=== PATIENT | female | born 1955 | race Caucasian/White ===

== ENCOUNTER 2018-04-16 15:42 | Observation (INO) | payer MEDICARE, BC ==
[2018-04-16 16:17] LABS: #Eosinphils 0.1 thou/uL (0.0-0.7); #Lymphocytes 1.6 thou/uL (1.20-3.40); #Monocytes 0.4 thou/uL (0.11-0.59); #Neutrophils 3.3 thou/uL (1.40-6.50); %Basophils 0.6 % (0.0-1.0); %Eosinophils 1.4 % (0.0-10.0); %Lymphocytes 29.2 % (21.0-51.0); %Monocytes 8.1 % (0.0-10.0); %Neutrophils 60.6 % (42.0-75.0); Hemoglobin 12.3 g/dL (12.0-16.0); Mean Corpuscular Hemoglobin 25.5 pg (27.0-31.0); Mean Corpuscular Volume 77.4 fl (81.0-99.0); Mean Platelet Volume 7.7 fL (7.4-10.4); Platelet Count 266 thou/uL (130-400); RBC Distribution Width 13.7 % (11.5-14.5); Red Blood Cell (RBC) Count 4.82 mill/uL (4.20-5.40); White Blood Cell (WBC) Count 5.4 thou/uL (4.8-10.8)
[2018-04-16 16:32] LABS: ALT (SGPT) 16 U/L (8-55); AST (SGOT) 20 U/L (5-34); Albumin 4.4 g/dL (3.4-4.8); Alkaline Phosphatase 55 U/L (40-150); Anion Gap 18 mmol/L (10-20); BUN (Urea Nitrogen) 24 mg/dL (9.8-20.1); Bilirubin, Total 0.8 mg/dL (0.2-1.2); Calc. Creatinine Clearance 0 mL/min (70-130); Calcium 9.8 mg/dL (7.8-10.44); Carbon Dioxide 23 mmol/L (23-31); Chloride 100 mmol/L (98-107); Estimated GFR-MDRD 65; Globulin 2.8 g/dL (2.4-3.5); Glucose 95 mg/dL (80-115); Potassium 4.2 mmol/L (3.5-5.1); Protein, Total 7.2 g/dL (6.0-8.3); Sodium 137 mmol/L (136-145)
--- NOTE | 2018-04-16 16:34 | RAD ---
CHEST ONE VIEW: Comparison: 06-21-17 History: Altered mental status. FINDINGS: Normal cardiac silhouette. Pulmonary vessels and hilum are normal. No masses or consolidations. No pn eumothorax or osseous abnormalities. IMPRESSION: NO acute cardiopulmonary process. POS: [facility]
[2018-04-16 17:40] LABS: Bilirubin Negative (Negative); Blood, Urine Negative (Negative); Clarity CLOUDY (Clear); Glucose, Urine (Dipstick) Negative (Negative); Leukocyte Large (Negative); Nitrite Negative (Negative); Protein, Urine (Dipstick) Negative (Neg-Trace); Specific Gravity, Urine 1.015 (1.002-1.036); pH, Urine 7.5 (5.0-9.0)
[2018-04-16 17:50] LABS: Bacteria/HPF 3+ HPF (None Seen); Hyaline Casts/LPF NONE SEEN LPF (0-3 Hyaline); RBC/HPF None Seen HPF (0-3); Squamous Epithelial 0-3 HPF (0-3)
--- NOTE | 2018-04-16 18:28 | CT ---
HEAD CT WITHOUT CONTRAST: History: Altered mental status. Comparison: 06-21-17 Technique: Noncontrast head CT is performed from skull base to skull vertex. FINDINGS: No parenchymal hemorrhage. No extraaxial hematoma. No midline shift. Basilar cisterns are patent. Age appropriate atrophy. Cortical weems white matter differentiation is preserved. Ventricles and sulci are patent and symmetric. Adequate aeration of the sinuses and mastoid air cells. Calvarium is intact. IMPRESSION: No acute intracranial process. POS: [facility]
[2018-04-16] MEDS ORDERED: cefTRIAXone\\ROCEPHIN 2 GM VIAL ONE (18:56)
[2018-04-16] MEDS ORDERED: Ondansetron ODT 4 MG TAB SL PRN (20:18)
[2018-04-16] MEDS ORDERED: Ondansetron HCl/PF 4 MG/2 ML Vial IVP PRN ×2 (20:18→22:29)
[2018-04-16] MEDS ORDERED: Acetaminophen 325 MG TAB PO PRN ×2 (20:18→22:29)
[2018-04-16 20:22] LABS: Lactic Acid 0.9 mmol/L (0.5-2.2)
[2018-04-16 20:41] VITALS: BMI 29.5
[2018-04-16] MEDS ORDERED: Ondansetron ODT 4 MG TAB PO PRN ×2 (22:29)
[2018-04-16] MEDS ORDERED: hydrALAZINE 20 MG/ML VIAL SLOW IVP PRN (22:29)
[2018-04-16] MEDS ORDERED: Lorazepam 2 MG/ML VIAL SLOW IVP PRN (22:29)
[2018-04-16] MEDS ORDERED: Sodium Chloride 0.9% 1,000 ML IV SCH (22:30)
--- NOTE | 2018-04-17 02:30 | HP ---
PRIMARY CARE PHYSICIAN: Dr. Jessy Ann. CHIEF COMPLAINT: "I went for a walk, got lost and overheated and had a seizure." HISTORY OF PRESENT ILLNESS: The history of present illness is taken from Ms. Simon herself, by the time I seeing her, her family has left. The patient does not have all of the details of how she came to be admitted, but she says that earlier today she decided to go for a walk and says that she decid ed to follow the sidewalk around, but did not realize that it went so far. She says she got lost and then began to become overheated. She says she remembers she was close to a fire station and then bl acked out. She says she does not really know what happened after that, she believes she arrived to [facility] via ambulance and she was seen in the ER and was noted to be febrile, also had urinalysis which was consistent with urinary tract infection and is being placed in observation for further uzma atment. The patient says that other than feeling a little bit tired and wanting to go to sleep, she has no complaints. She does admit to a headache off and on and has had some urinary frequency, but n o dysuria. She believes she may have had a seizure earlier and is on seizure medication, which she h as been compliant with. REVIEW OF SYSTEMS: Constitutional: There have been no fevers prior to the episode, no chills, no ni ght sweats, no weight loss. HEENT: She complains of headache off and on. No visual changes, no sor e throat, rhinorrhea, neck pain, no adenopathy. Pulmonary: No hemoptysis, no cough, no wheezing. C ardiovascular: She denies any chest pain, no shortness of breath, no PND, no orthopnea. Gastrointes tinal: No abdominal pain, no nausea, no vomiting, no change in bowels. Genitourinary: She has had some urinary frequency, but no dysuria, no hematuria. Musculoskeletal: No joint pains. No weakness . Skin and Integument: No skin changes. No rash. Psychiatric: No symptoms of anxiety or depressi on. PAST MEDICAL HISTORY: Significant for pseudoseizures, bipolar disorder, anxiety, depression, and pso riatic arthritis. PAST SURGICAL HISTORY: She has had a cerebral shunt, not sure why; gastric bypass; and hysterectomy. SOCIAL HISTORY: She is . She has two daughters and has grandchildren. She lives with one o f her daughters and her daughter's . She is a nonsmoker, nondrinker. FAMILY HISTORY: Significant for lung disease and cancer and heart disease. ALLERGIES: HYDROCODONE. MEDICATIONS: Taken from the emergency room records and include Keppra 1500 mg twice daily as well as Effexor 75 mg twice daily, and clonazepam 0.25 mg daily. PHYSICAL EXAMINATION: GENERAL: She is alert and oriented. She appears to be in no acute distress. VITAL SIGNS: Blood pressure was 107/60, heart rate 102, respiratory rate of 24, temperature is 102.9 . HEENT: Pupils are equal, round, and reactive. Extraocular muscles are intact. Her sclerae are anic teric. Throat: She has got poor dentition. NECK: No adenopathy, no bruits. LUNGS: Clear to auscultation. There was no wheezing, no rales. CARDIOVASCULAR: She has a normal S1, S2. There was no S3 or S4. No murmurs, clicks, or rubs. ABDOMEN: Soft, it is nontender, nondistended. Positive for bowel sounds. No rebound, no guarding. EXTREMITIES: There is no clubbing, cyanosis, no edema. NEUROLOGIC: The exam is grossly nonfocal, muscle strength was 5/5 in both her upper and lower extrem ities. Reflexes are symmetric and cranial nerves II through XII are intact. LABORATORY AND DIAGNOSTIC DATA: CT scan was negative for any acute intracranial abnormality. EKG wa s sinus rhythm, the rate was in the 90s. No ST wave changes. Urinalysis was significant for positiv e leukocyte esterase and 3+ bacteria. White blood cell count 5.4, hemoglobin 12.3, hematocrit is 37. 3, platelet count is 266,000. Sodium 137, potassium 4.2, chloride is 100, CO2 is 23, BUN of 24, crea tinine 0.88, glucose is 95. Lactic acid was 4.9, repeat was 0.9. ASSESSMENT AND PLAN: This is a pleasant 62-year-old female who is being placed in observation after which sounds like suffering a seizure. It is likely the seizure was a result of a decrease in seizur e threshold from both becoming overheated as well as a possible urinary tract infection. Right now, when I come to see her, she seems to be completely at her baseline without any significant complaints . We will go ahead and monitor her overnight. Place her on IV fluids as well as continue Rocephin a nd continue her usual seizure medications, i.e. Keppra and place her on seizure precautions. If fortunato rrow, she has been clinically stable without any seizures and without any spike in her temperature, t hen likely she can be discharged home on an oral antibiotic for the urinary tract infection and cultu res can likely be followed up with her primary care physician.
[2018-04-17 05:43] LABS: #Eosinphils 0.1 thou/uL (0.0-0.7); #Lymphocytes 2.4 thou/uL (1.20-3.40); #Monocytes 0.8 thou/uL (0.11-0.59); #Neutrophils 5.3 thou/uL (1.40-6.50); %Basophils 0.4 % (0.0-1.0); %Eosinophils 1.2 % (0.0-10.0); %Lymphocytes 28.3 % (21.0-51.0); %Monocytes 8.8 % (0.0-10.0); %Neutrophils 61.3 % (42.0-75.0); Hemoglobin 10.5 g/dL (12.0-16.0); Mean Corpuscular HGB CONC 32.5 g/dL (32.0-36.0); Mean Corpuscular Hemoglobin 25.9 pg (27.0-31.0); Mean Corpuscular Volume 79.7 fl (81.0-99.0); Platelet Count 208 thou/uL (130-400); RBC Distribution Width 13.6 % (11.5-14.5); Red Blood Cell (RBC) Count 4.06 mill/uL (4.20-5.40); White Blood Cell (WBC) Count 8.6 thou/uL (4.8-10.8)
[2018-04-17 05:55] LABS: Anion Gap 9 mmol/L (10-20); BUN (Urea Nitrogen) 18 mg/dL (9.8-20.1); Calc. Creatinine Clearance 125 mL/min (70-130); Calcium 8.4 mg/dL (7.8-10.44); Carbon Dioxide 28 mmol/L (23-31); Chloride 110 mmol/L (98-107); Estimated GFR-MDRD Greater than 90; Glucose 82 mg/dL (80-115); Potassium 3.1 mmol/L (3.5-5.1); Sodium 144 mmol/L (136-145)
[2018-04-17] MEDS ORDERED: Potassium Chloride 20 MEQ TAB PO SCH (08:00)
[2018-04-17] MEDS ORDERED: levETIRAcetam 500 MG TAB PO SCH (09:00)
[2018-04-17] MEDS ORDERED: clonazePAM 0.5 MG TAB PO SCH (09:00)
[2018-04-17] MEDS ORDERED: Venlafaxine HCl XR 75 MG CAP PO SCH (09:00)
[2018-04-17] MEDS ORDERED: Docusate 100 MG CAP PO SCH (09:00)
[2018-04-17 11:36] VITALS: TEMP 97.9
[2018-04-17 11:47] VITALS: BP 98/58
[2018-04-17] MEDS ORDERED: cefTRIAXone\\ROCEPHIN 1 GM in Sodium Chloride 0.9% 100 ML IVPB SCH (18:30)
--- NOTE | 2018-04-17 23:15 | DIS ---
DATE OF ADMISSION: 04/16/2018 DATE OF DISCHARGE: 04/17/2018 DISCHARGE DIAGNOSES: 1. Heat prostration. 2. Possible seizure. 3. Urinary tract infection. 4. History of seizure disorder. 5. History of short-term memory impairment. 6. History of bipolar disorder. 7. History of anxiety. 8. History of depression. 9. History of cerebral shunt. 10. History of gastric bypass. HOSPITAL COURSE: This patient is a 62-year-old female who apparently has some chronic debility secon josh to short-term memory defect according to her daughters. In the past, the patient has had episod es when she has been driving and would suddenly find herself unaware of her surroundings. She has jorge bsequently quit driving. She was at home and had been encouraged to get some exercise, so she decide d to go for a walk on the day of admission. Subsequently, the patient became lost and was found 3 mi les from home where she had been walking steadily since she departed from her home. The patient was a bit more confused. She was subsequently brought to the emergency department where she was noted to be febrile. She had evidence of urinary tract infection on her urinalysis. HOSPITAL COURSE: The patient was placed in observation. She was cooled and aggressively hydrated. Her initial lactic acid was 4.9, but subsequent repeat was 0.9. The patient reports that she was com pletely asymptomatic throughout her hospitalization. During hospital course, the patient reported no symptoms. She was able to get up and ambulate well. Her blood pressure, which typically runs aroun d 100 systolic, did get as low as 80s with some associated bradycardia. This improved when the patie nt ambulated and received some fluids. It was back to her baseline by the time of discharge. The jeromy wood was also noted to have some hypokalemia with a potassium dropping to 3.1. This was subsequentl y repleted. The patient was also noted to have blisters on the posterior aspect of both of her heels from ill-fitting shoes. These were simply dressed topically. Once the patient was up and ambulatin g, both of her daughters felt that she was essentially at her baseline. Her blood pressure appeared to be stable. She was felt to be stable for discharge to home. DISCHARGE MEDICATIONS: The patient will be discharged to home. She will continue with her usual reg ular diet. Her activity level as tolerated. She will continue with her usual home medications inclu ding Klonopin 0.25 mg p.o. daily, Effexor XR 75 mg b.i.d., Keppra 1000 mg b.i.d., and she will have t he addition of Cipro 250 mg p.o. q.12 hours for 7 days. She is to follow up with her PCP this week and return to the emergency department should she have any problems prior to that time.
== END 2018-04-17 12:55 | disposition home or self-care (01) ==
LOC: ERS 15:42 → 2SE 19:32
PROVIDERS: ADMIT Internal Medicine Infectious Disease; ATTEND Internal Medicine Infectious Disease
DX: T67.5XXA Heat exhaustion, unspecified, initial encounter (principal); N39.0 Urinary tract infection, site not specified; F41.9 Anxiety disorder, unspecified; F32.9 Major depressive disorder, single episode, unspecified; L40.50 Arthropathic psoriasis, unspecified; Z79.899 Other long term (current) drug therapy; Z88.5 Allergy status to narcotic agent
CPT/HCPCS: 70450; 71045; 80048; 80053; 83605; 85025 ×2; 87040; 87077; 87086; 87186; 93005; 96361; 96365; 99285; G0378; 36415; 81003; 81015; J0696

== ENCOUNTER 2021-11-30 15:41 | Outpatient (CLI) | payer MEDICARE, BC | END 2021-11-30 15:42 | disposition home or self-care (01) | LOC: BICMAMMO 15:41 | PROVIDERS: ATTEND Family Medicine | DX: Z12.31 Encounter for screening mammogram for malignant neoplasm of breast (principal) | CPT/HCPCS: 77063; 77067 ==

== ENCOUNTER 2024-12-31 09:58 | Emergency (ER) | payer BC, MEDICARE ==
[2024-12-31] MEDS ORDERED: Iopamidol-370 76% 500 ML MDV (1 ML CHARGE) ONE (10:32)
[2024-12-31 11:00] LABS: #Basophils 0.03 10x3/uL (0.0-0.2); %Basophils 0.7 % (0.0-1.0); %Monocytes 11.2 % (0.0-10.0); %Neutrophils 68.6 % (42.0-75.0); Hematocrit 35.2 % (36.0-47.0); Hemoglobin 10.5 g/dL (12.0-16.0); Mean Corpuscular HGB CONC 29.8 g/dL (32.0-36.0); Mean Corpuscular Hemoglobin 21.5 pg (27.0-31.0); Mean Platelet Volume 9.7 fL (7.4-10.4); Platelet Count 258 10x3/uL (130-400); RBC Distribution Width 16.8 % (11.5-14.5); Red Blood Cell (RBC) Count 4.89 mill/uL (4.20-5.40)
[2024-12-31 11:10] LABS: ALT (SGPT) 23 U/L (Less than 34); AST (SGOT) 30 U/L (11-34); Alkaline Phosphatase 45 U/L (40-110); Anion Gap 15 mmol/L (10-20); BUN (Urea Nitrogen) 19 mg/dL (9.8-20.1); Bilirubin, Total 0.5 mg/dL (0.3-1.2); Calc. Creatinine Clearance 0 mL/min (70-130); Calcium 9.5 mg/dL (7.8-10.44); Carbon Dioxide 25 mmol/L (23-31); Chloride 103 mmol/L (98-107); Estimated GFR 97; Glucose 117 mg/dL (80-115); Lipase 26 U/L (8-78); Potassium 3.9 mmol/L (3.5-5.1); Sodium 139 mmol/L (136-145)
[2024-12-31 11:24] LABS: Bacteria/HPF 2+ HPF (None Seen); Bilirubin Negative (Negative); Blood, Urine Negative (Negative); CAUTI Indications for Culture Pelvic or flank pain; Clarity Turbid (Clear); Glucose, Urine (Dipstick) Normal (Negative); Ketone, Urine Trace mg/dL (Negative); Leukocyte 250 Leu/uL (Negative); Nitrite Negative (Negative); Protein, Urine (Dipstick) 20 mg/dL (Neg-Trace); RBC/HPF 0-3 HPF (0-3); Specific Gravity, Urine 1.016 (1.002-1.036); Squamous Epithelial 0-3 HPF (0-3); Urobilinogen Normal mg/dL (Less than 2); WBC/HPF 21-50 HPF (0-3); pH, Urine 8.5 (5.0-9.0)
[2024-12-31 11:26] LABS: Burr Cells SLIGHT = 2-5 cells HPF (0-1); Elliptocytes SLIGHT = 2-5 cells HPF (0-1); Hypochromia SLIGHT = 6-15 cells HPF (0-5); Microcytosis SLIGHT = 6-15 cells HPF (0-5); Platelet Adequacy Comment Platelets Normal; Poikilocytosis SLIGHT = 6-15 cells HPF (0-5); Polychromasia SLIGHT = 2-3 cells HPF (0-2); Schistocytes SLIGHT = 2-5 cells HPF (0-1)
[2024-12-31 11:26] LABS: Urine Culture Reflex Yes Yes
[2024-12-31] MEDS ORDERED: Morphine 4 MG/ML VIAL ONE ×2 (11:42→11:56)
[2024-12-31] MEDS ORDERED: Lactulose 20 GM (30 mL) UDCUP ONE (12:25)
[2024-12-31 12:50] LABS: Troponin I Less than 0.010 ng/mL (< 0.028)
== END 2024-12-31 14:35 | disposition home or self-care (01) ==
LOC: ERS 09:58
DX: N10 Acute pyelonephritis (principal); K80.20 Calculus of gallbladder without cholecystitis without obstruction; Z87.891 Personal history of nicotine dependence
CPT/HCPCS: 71045; 74177; 80053; 81001; 83690; 84484; 85025; 87077; 87086; 87186; 93005; 96374; 96375; 99285; J2270; Q9967; 36415